=== PATIENT | male | born 1995 | race Caucasian/White ===

== ENCOUNTER 2018-06-25 12:29 | Inpatient (IN) | payer OTHER ==
[~2018-06-25] VITALS: Ht 182.9 cm; Wt 88.6 kg
[~2018-06-25 12:29] MED LIST: ETOMIDATE 20 MG/10 ML ONE; MIDAZOLAM 1 MG/ML, 5ML ONE; PROPOFOL 10 MG/ML, 100ML IV ONE; PROPOFOL 10 MG/ML, 20ML ONE; SUCCINYLCHOLINE 20 MG/ML, 10ML ONE; VECURONIUM 10 MG ONE
[2018-06-25] MEDS ORDERED: AMPICILLIN/SULBACTAM 3 GM in SODIUM CHLORIDE 0.9% 100 ML IV ONE (12:54)
[2018-06-25 12:58] LABS: MEAN CORPUSCULAR HEMOGLOBIN 31.2 pg (27.5-34.5); MEAN CORPUSCULAR HGB CONC 34.5 g/dL (33.2-36.2); MEAN CORPUSCULAR VOLUME 90.6 fL (81-97); MEAN PLATELET VOLUME 9.3 fL (7.4-10.4); PLATELET COUNT 307 x10^3/uL (130-400); RED CELL DISTRIBUTION WIDTH 12.2 % (9.4-14.8)
[2018-06-25] MEDS ORDERED: ETOMIDATE 20 MG/10 ML IVPush ONE (13:00)
[2018-06-25] MEDS ORDERED: SUCCINYLCHOLINE 20 MG/ML, 10ML IVPush ONE (13:00)
[2018-06-25] MEDS ORDERED: PROPOFOL 100 ML IV PRN ×2 (13:00→14:52)
[2018-06-25] MEDS ORDERED: MIDAZOLAM 1 MG/ML, 2ML IVPush ONE ×3 (13:06→14:00)
[2018-06-25 13:12] LABS: ALANINE AMINOTRANSFERASE 45 U/L (12-78); ALBUMIN 4.6 g/dL (3.4-5.0); ANION GAP 16 mmol/L (5-15); CALCIUM 8.6 mg/dL (8.5-10.1); CHLORIDE 106 mmol/L (98-107); CREATININE 1.52 mg/dL (0.7-1.3)
[2018-06-25 13:13] LABS: MD YES
[2018-06-25 13:14] LABS: ALKALINE PHOSPHATASE 77 U/L (45-117); BAND#(MANUAL) 1.09 x10^3/uL; BANDS%(MANUAL) 6 % (0-7); BILIRUBIN,TOTAL 0.4 mg/dL (0.2-1.0); EOS#(MANUAL) 0.18 x10^3/uL (0.0-0.4); EOS% (MANUAL) 1 % (1-7); LYMPH#(MANUAL) 1.27 x10^3/uL (1-3.4); LYMPHS% (MANUAL) 7 % (22-44); MONOS#(MANUAL) 1.27 x10^3/uL (0.3-2.7); MONOS% (MANUAL) 7 % (2-9); SEGS% (MANUAL) 79 % (42-75); TOTAL PROTEIN 7.9 g/dL (6.4-8.2)
--- NOTE | 2018-06-25 13:16 | NUR ---
PT TO CT AT THIS TIME
--- NOTE | 2018-06-25 13:16 | NUR ---
PT TO CT AT THIS TIME VIA LAMBERT ON MONITOR W/ RT, RN & TECH
[2018-06-25 13:17] LABS: <PLATELET ESTIMATE> ADEQUATE; <PLT MORPHOLOGY> NORMAL PLT MORPH; <RBC MORPHOLOGY> NORMAL
[2018-06-25 13:20] LABS: SALICYLATE LEVEL < 1.7 mg/dL (2.8-20.0)
[2018-06-25 13:21] LABS: ACETAMINOPHEN < 2 mcg/mL (10-30)
[2018-06-25] MEDS ORDERED: PLEASE ENTER HEIGHT AND WEIGHT MC SCH (13:30)
[2018-06-25] MEDS ORDERED: VECURONIUM 10 MG IVPush ONE ×2 (13:30→15:00)
[2018-06-25] MEDS ORDERED: PLEASE ENTER ALLERGIES MC SCH (13:30)
[2018-06-25 13:37] LABS: AMPHETAMINE SCREEN, URINE Negative (Negative); BARBITURATE SCREEN, URINE Negative (Negative); BENZODIAZEPINE SCREEN, URINE Positive (Negative); CANNABINOID SCREEN, URINE Positive (Negative); COCAINE SCREEN, URINE Positive (Negative); METHADONE SCREEN, URINE Negative (Negative); OPIATE SCREEN, URINE Negative (Negative)
[2018-06-25] MEDS ORDERED: MIDAZOLAM HCL 50 MG in SODIUM CHLORIDE 0.9% 240 ML IV ONE (13:58)
[2018-06-25] MEDS ORDERED: VECURONIUM 10 MG ONE (14:08)
[2018-06-25] MEDS ORDERED: ICN FENTANYL 4MCG/ML IV IVPush STA (14:24)
[2018-06-25] MEDS ORDERED: FENTANYL PF 100 MCG/2ML IVPush ONE ×2 (14:30→17:30)
--- NOTE | 2018-06-25 14:38 | NUR ---
LATE ENTRY 1150 SEIZURE D/T OD, UNKNOWN SUBSTANCE. 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 PT INTUBATED UPON ARRIVAL TO ED
--- NOTE | 2018-06-25 14:39 | NUR ---
LATE ENTRY FOR EVENTS FROM ADMIT TO NOW. PT INTUBATED, NOTED. INCREASED AGGITATION, MOVING WITH PURPOSE, NOT FOLLOWING COMMANDS. HARD 4PT RESTRAINTS IN PLACE. PT MED WITH VERSED AND VECCURONIUM WITH EFFECT. MYATBERTHA, PCXR COMPLETED. PT ON MONITOR AND TRANSPORTED TO CT WITH RN, EMT, RT ESCORT. CT COMPLETED W/O DIFFICULTY AND PT RTD TO TRAUMA 3. HARD RESTRAINTS REMOVED AND BILAT SOFT WRIST RESTRAINTS PLACED. GOWN PLACED AND CLEAN LINNENS. PT AGGITATES EASILY PROPOFOL GTT INCREASED NOTED. PT WORKING AGAINST VENTILATER, PULLING ON RESTRAINTS DOES NOT FOLLOW COMMANDS. DR. CHENG UPDATED AND PT MED WITH VERSED W/O EFFECT. VECCURONIUM GIVEN NOTED WITH EFFECT. AT 1405 MULTIPLE FAMILY MEMBERS AT BEDSIDE INCLUDING PARENTS. PT ASSESSMENT, VENTILATION, MEDICATIONS AND POC REVIEWED. ICU VISITING EXPLAINED AND IMPORTANCE OF FAMILY APPOINTING 1 SPOKES PERSON WHICH WILL BE EITHER MOM OR DAD. (PT IS NOT ) ALSO REVIEWED LIMITING BEDSIDE VISITOR TO 2 AT A TIME. FAMILY MEMBERS VERBALIZE UNDERSTANDING.
[2018-06-25] MEDS ORDERED: FENTANYL PF 100 MCG/2ML ONE ×2 (14:43→16:02)
--- NOTE | 2018-06-25 14:56 | NUR ---
BEDSIDE REPORT FROM REMY MORRELL. PT RESTING IN [facility], APPEARS APPROPRIATELY SEDATED. VS TOLERATING MEDICATIONS. FAMILY AT BEDSIDE.
[2018-06-25] MEDS ORDERED: ONDANSETRON 2MG/ML, 2ML IVPush PRN (15:00)
[2018-06-25] MEDS ORDERED: BISACODYL 10 MG SUPP PR PRN (15:00)
[2018-06-25] MEDS ORDERED: PHARMACY MAY ADJ FOR RENAL FX MC SCH (15:00)
[2018-06-25] MEDS ORDERED: LIDOCAINE-MPF 1%, 2ML ENDO PRN (15:00)
[2018-06-25] MEDS ORDERED: POLYETHYLENE GLYCOL 17 GM PACKET PO PRN (15:00)
[2018-06-25] MEDS ORDERED: ENALAPRILAT 1.25 MG/ML, 2ML IVPush PRN (15:00)
[2018-06-25] MEDS ORDERED: ACETAMINOPHEN 650 MG/20.3 ML UDC NG PRN (15:00)
[2018-06-25] MEDS ORDERED: FENTANYL PF 2,500 MCG in SODIUM CHLORIDE 0.9% 200 ML IV PRN (15:00)
[2018-06-25] MEDS ORDERED: LORazepam 2 MG/ML, 1ML IVPush PRN (15:00)
[2018-06-25] MEDS ORDERED: hydrALAzine 20 MG/ML, 1ML IVPush PRN (15:00)
[2018-06-25] MEDS ORDERED: MIDAZOLAM HCL 50 MG in SODIUM CHLORIDE 0.9% 240 ML IV PRN (15:00)
[2018-06-25] MEDS: SODIUM CHLORIDE 0.9% 1,000 ML IV SCH ×2 (15:30→21:04)
[2018-06-25 15:46] LABS: THYROID STIMULATING HORMONE 0.663 mIU/L (0.358-3.740)
--- NOTE | 2018-06-25 15:50 | NUR ---
LATE ENTRY [address] PT NARCAN 0.5MG NARCAN WITH NO EFFECT. 5MG VERSED IM. ESTABLISHED A LEFT EJ PIV AND GAVE 350MG KETAMINE AND 2MG VERSED IV. [facility] PALCED AND LMA. PT ARROUSED IN ROUTE AND SELF EXTUBATED. PT PRESENTED TO ED WITH NASALPHARANGEAL IN PLACE RIGHT NARE, BVM VENTILATION MANAGED BY VERENICE. RT AT BEDSIDE AND ASSUMED AIRWAY MANAGEMENT
[2018-06-25] MEDS ORDERED: PIPERACILLIN/TAZO/PMX 3.375GM 50 ML ONE (15:52)
[2018-06-25] MEDS: PIPERACILLIN/TAZO/PMX 3.375GM 50 ML IV SCH ×2 (15:57→18:22)
--- NOTE | 2018-06-25 16:07 | NUR ---
PT W/ PERIODICALLY ARROUSABLE. PT W/ EYES OPEN, KICKING. MEDICATIONS TITRATED W/ EFFECT. ET TUBE PLACEMENT CONFIRMED WITH BILAT BREATH SOUNDS. PT MEDICATED WITH 100MCG FENTANYL PER ERP VERBAL ORDER. ABX INITIATED. BC X 2 DRAWN PRIOR TO ADMIN. INCREASE IN TEMP NOTED AND CHARTED.
--- NOTE | 2018-06-25 16:22 | NUR ---
REPORT TO REMY STEVENS
[2018-06-25] MEDS ORDERED: PROPOFOL 100 ML IV ONE (16:33)
[2018-06-25 17:28] LABS: MICROSCOPIC INDICATED
[2018-06-25 17:36] LABS: CULTURE INDICATED? NO
[2018-06-25] MEDS: ENOXAPARIN 40 MG/0.4 ML SQ SCH (18:21)
[2018-06-25] MEDS: PROPOFOL 100 ML IV PRN ×2 (19:01→22:44)
[2018-06-25 19:38] VITALS: BP 148/71
[2018-06-25] MEDS: FAMOTIDINE 20 MG/2 ML IVPush SCH (21:03)
[2018-06-25] MEDS: FENTANYL PF 100 MCG/2ML IVPush PRN (21:09)
[2018-06-26] MEDS: PIPERACILLIN/TAZO/PMX 3.375GM 50 ML IV SCH ×4 (00:12→20:12)
[2018-06-26] MEDS ORDERED: ALBUTEROL/IPRATROPIUM 2.5MG/0.5MG, 3 ML ONE (00:21)
[2018-06-26] MEDS ORDERED: ALBUTEROL/IPRATROPIUM 2.5MG/0.5MG, 3 ML NPPB PRN (01:00)
[2018-06-26] MEDS ORDERED: MIDAZOLAM HCL 100 MG in SODIUM CHLORIDE 0.9% 230 ML IV PRN (01:13)
[2018-06-26] MEDS: PROPOFOL 100 ML IV PRN ×3 (02:25→10:00)
[2018-06-26 04:30] VITALS: BP 123/65
[2018-06-26] MEDS: FENTANYL PF 100 MCG/2ML IVPush PRN ×2 (05:16→10:25)
[2018-06-26] MEDS: SODIUM CHLORIDE 0.9% 1,000 ML IV SCH (05:16)
[2018-06-26 06:34] LABS: BASOPHILS # (AUTO) 0.02 x10^3/uL (0-0.1); BASOPHILS % (AUTO) 0 % (0-1); EOSINOPHILS # (AUTO) 0.16 x10^3/uL (0-0.4); EOSINOPHILS % (AUTO) 1 % (1-7); LYMPHOCYTES # (AUTO) 1.36 x10^3/uL (1-3.4); LYMPHOCYTES % (AUTO) 11 % (22-44); MD NO; MEAN CORPUSCULAR HEMOGLOBIN 31.8 pg (27.5-34.5); MEAN CORPUSCULAR HGB CONC 35.2 g/dL (33.2-36.2); MEAN CORPUSCULAR VOLUME 90.5 fL (81-97); MEAN PLATELET VOLUME 9.3 fL (7.4-10.4); MONOCYTES # (AUTO) 1.05 x10^3/uL (0.2-0.8); MONOCYTES % (AUTO) 9 % (2-9); NEUTROPHILS # (AUTO) 9.43 x10^3/uL (1.8-6.8); NEUTROPHILS % (AUTO) 79 % (42-75); PLATELET COUNT 232 x10^3/uL (130-400); RED BLOOD COUNT 4.42 x10^6/uL (4.38-5.82); RED CELL DISTRIBUTION WIDTH 12.3 % (9.4-14.8)
[2018-06-26 06:54] LABS: CHLORIDE 113 mmol/L (98-107)
[2018-06-26 07:14] LABS: ALANINE AMINOTRANSFERASE 32 U/L (12-78); ALBUMIN 3.5 g/dL (3.4-5.0); ALKALINE PHOSPHATASE 60 U/L (45-117); ANION GAP 8 mmol/L (5-15); BILIRUBIN,TOTAL 0.7 mg/dL (0.2-1.0); CALCIUM 7.8 mg/dL (8.5-10.1); TOTAL PROTEIN 6.1 g/dL (6.4-8.2)
[2018-06-26] MEDS ORDERED: POTASSIUM CHLORIDE 20 MEQ, MAGNESIUM SULFATE 1 GM, MVI ADULT 10 ML, THIAMINE 200 MG, FO... IV SCH (08:00)
[2018-06-26] MEDS: FAMOTIDINE 20 MG/2 ML IVPush SCH (09:01)
[2018-06-26] MEDS: SENNA/DOCUSATE TABLET PO SCH (09:01)
[2018-06-26] MEDS ORDERED: ALBUTEROL SULFATE 2.5 MG/3 ML NPPB PRN (15:30)
[2018-06-26] MEDS: ENOXAPARIN 40 MG/0.4 ML SQ SCH (20:12)
[2018-06-26] MEDS: NICOTINE 21 MG/24 HR PATCH.TD24 TD SCH (21:46)
[2018-06-26 21:51] VITALS: BP 137/92
[2018-06-27] MEDS: PIPERACILLIN/TAZO/PMX 3.375GM 50 ML IV SCH ×2 (02:30→09:21)
[2018-06-27 02:33] VITALS: BP 118/67
[2018-06-27 05:11] LABS: ANION GAP 7 mmol/L (5-15); CALCIUM 8.4 mg/dL (8.5-10.1); CHLORIDE 111 mmol/L (98-107)
[2018-06-27 05:13] LABS: CREATININE 1.07 mg/dL (0.7-1.3)
[2018-06-27 06:52] VITALS: BP 120/72
[2018-06-27] MEDS: SENNA/DOCUSATE TABLET PO SCH (09:00)
[2018-06-27 13:59] VITALS: BP 106/64
[2018-06-27] MEDS: AMOXICILLIN/CLAV 875-125MG TABLET PO SCH (16:00)
[2018-06-27] MEDS: ENOXAPARIN 40 MG/0.4 ML SQ SCH (17:54)
[2018-06-27 19:27] VITALS: BP 145/82
[2018-06-27] MEDS: NICOTINE 21 MG/24 HR PATCH.TD24 TD SCH (20:01)
[2018-06-27] MEDS: MULTIVITAMINS/MINERALS TABLET PO SCH (20:01)
[2018-06-27] MEDS: THIAMINE 100MG TABLET PO SCH (20:01)
[2018-06-28 02:00] VITALS: BP 121/70
[2018-06-28] MEDS: AMOXICILLIN/CLAV 875-125MG TABLET PO SCH ×2 (04:23→16:47)
[2018-06-28 05:52] LABS: BASOPHILS # (AUTO) 0.03 x10^3/uL (0-0.1); BASOPHILS % (AUTO) 0 % (0-1); EOSINOPHILS # (AUTO) 0.43 x10^3/uL (0-0.4); EOSINOPHILS % (AUTO) 5 % (1-7); LYMPHOCYTES % (AUTO) 22 % (22-44); MD NO; MEAN CORPUSCULAR HEMOGLOBIN 31.9 pg (27.5-34.5); MEAN CORPUSCULAR HGB CONC 34.9 g/dL (33.2-36.2); MEAN CORPUSCULAR VOLUME 91.2 fL (81-97); MEAN PLATELET VOLUME 9.7 fL (7.4-10.4); MONOCYTES # (AUTO) 0.68 x10^3/uL (0.2-0.8); MONOCYTES % (AUTO) 8 % (2-9); NEUTROPHILS # (AUTO) 5.12 x10^3/uL (1.8-6.8); NEUTROPHILS % (AUTO) 64 % (42-75); PLATELET COUNT 231 x10^3/uL (130-400); RED BLOOD COUNT 4.33 x10^6/uL (4.38-5.82); RED CELL DISTRIBUTION WIDTH 12.1 % (9.4-14.8)
[2018-06-28 06:25] VITALS: BP 124/79
[2018-06-28] MEDS: THIAMINE 100MG TABLET PO SCH ×2 (07:44→21:43)
[2018-06-28] MEDS: POTASSIUM CHLORIDE 20 MEQ TAB.ER.PRT PO SCH ×2 (07:44→16:48)
[2018-06-28] MEDS: SENNA/DOCUSATE TABLET PO SCH (07:44)
[2018-06-28] MEDS: MULTIVITAMINS/MINERALS TABLET PO SCH ×2 (07:55→21:42)
[2018-06-28 12:43] VITALS: BP 132/78
[2018-06-28] MEDS: NICOTINE 21 MG/24 HR PATCH.TD24 TD SCH (16:47)
[2018-06-28] MEDS: ENOXAPARIN 40 MG/0.4 ML SQ SCH (18:00)
[2018-06-28 19:18] VITALS: BP 123/70
[2018-06-28] MEDS ORDERED: DIPHENHYDRAMINE 50 MG CAPSULE PO ONE (22:00)
[2018-06-29 00:10] VITALS: BP 124/75
[2018-06-29] MEDS: AMOXICILLIN/CLAV 875-125MG TABLET PO SCH (05:31)
[2018-06-29 06:17] LABS: ANION GAP 8 mmol/L (5-15); CALCIUM 8.8 mg/dL (8.5-10.1); CHLORIDE 111 mmol/L (98-107); CREATININE 0.98 mg/dL (0.7-1.3)
[2018-06-29 06:37] VITALS: BP 122/67
[2018-06-29] MEDS ORDERED: TRAZODONE 50MG TABLET PO PRN (07:30)
[2018-06-29] MEDS: SENNA/DOCUSATE TABLET PO SCH (09:00)
[2018-06-29] MEDS: THIAMINE 100MG TABLET PO SCH (10:16)
[2018-06-29] MEDS: MULTIVITAMINS/MINERALS TABLET PO SCH (10:16)
[2018-06-29 11:05] VITALS: BP 120/74
[2018-06-29] MEDS: NICOTINE 21 MG/24 HR PATCH.TD24 TD SCH (13:25)
== END 2018-06-29 15:26 | DRG 917 ==
LOC: ED 12:48 → MERGE 12:48 → EDIP 13:49 → CCU 16:41 → 4WST 06-26 16:05 → 2N 06-29 10:56
PROVIDERS: ADMIT Hospitalist; ATTEND Hospitalist
PROC: 0BH17EZ Insertion of Endotracheal Airway into Trachea, Via Natural or Artificial Opening (ICD-10-PCS; principal; 2018-06-25)
PROC: 5A1935Z Respiratory Ventilation, Less than 24 Consecutive Hours (ICD-10-PCS; 2018-06-25)
PROC: 0T9B70Z Drainage of Bladder with Drainage Device, Via Natural or Artificial Opening (ICD-10-PCS; 2018-06-25)
DX: T40.2X2A Poisoning by other opioids, intentional self-harm, initial encounter (principal); J69.0 Pneumonitis due to inhalation of food and vomit; G93.41 Metabolic encephalopathy; J96.00 Acute respiratory failure, unspecified whether with hypoxia or hypercapnia; N17.0 Acute kidney failure with tubular necrosis; E87.2 Acidosis; Z99.11 Dependence on respirator [ventilator] status; T40.5X2A Poisoning by cocaine, intentional self-harm, initial encounter; I44.5 Left posterior fascicular block; I51.7 Cardiomegaly; J45.909 Unspecified asthma, uncomplicated; E87.5 Hyperkalemia; E87.6 Hypokalemia; F10.129 Alcohol abuse with intoxication, unspecified; R73.9 Hyperglycemia, unspecified; F14.10 Cocaine abuse, uncomplicated; G47.00 Insomnia, unspecified; Z82.49 Family history of ischemic heart disease and other diseases of the circulatory system; Y92.89 Other specified places as the place of occurrence of the external cause; Z83.3 Family history of diabetes mellitus; Z87.891 Personal history of nicotine dependence; Z88.8 Allergy status to other drugs, medicaments and biological substances; Z88.1 Allergy status to other antibiotic agents; Z91.013 Allergy to seafood
CPT/HCPCS: 36415; 36600; 82805; 87806; 99291; J3490; J7620; 70450; 71045; 80048; 80053; 80074; 80307; 80329; 81001; 82803; 83605; 83735; 84100; 84443; 84478; 85025; 87040; 87070; 87077; 87081; 87147; 87186; 87205; 93005; 94002; 94003; 94640; 96365; 96366; 96375; 96376; G0378; J0295; J1650; J2250; J2543; J2704; J3010; J3411; J3475; J3480; G0475; G0480; J0330; J7030; J7050